=== PATIENT | male | born 1965 | race Caucasian/White ===

== ENCOUNTER 2025-02-26 19:20 | Observation (INO) | payer OTHER, SELFPAY ==
[2025-02-26] VITALS (9 sets, daily range): BP systolic 122–158; BP diastolic 59–102; BMI 26.5; BMI 26.8
[2025-02-26 16:31] LABS: Glucose - Point of Care 116 mg/dl (70-99)
[2025-02-26 16:52] LABS: Hematocrit 43.7 % (39.0-52.0); Hemoglobin 14.9 g/dL (13.0-18.0); Mean Corp Hgb Conc. 34.1 g/dL (33.0-37.0); Mean Corpuscular Volume 91.2 fL (80.0-94.0); Nucleated Red Blood Cells % 0 % (-); Platelet Count 234 10^3/uL (130-400); Red Cell Dist. Width 13.9 % (11.5-14.5)
[2025-02-26 17:04] LABS: APTT 26.3 Sec (23.4-35.0)
[2025-02-26 17:16] LABS: ALT (SGPT) 28 U/L (0-50); AST (SGOT) 43 U/L (17-59); Albumin 4.5 g/dl (3.5-5.0); Alkaline Phosphatase 84 U/L (38-126); Blood Urea Nitrogen 10 mg/dl (9-20); Calcium 9.3 mg/dl (8.4-10.2); Carbon Dioxide 27 mmol/L (22-30); Chloride 102 mmol/L (98-107); Estimated Creatinine Clearance 92 ml/min; Glucose 120 mg/dl (70-99); Potassium 4.5 mmol/L (3.5-5.1); Sodium 135 mmol/L (135-145); Total Protein 7.3 g/dl (6.3-8.2); eGFR > 60.00
--- NOTE | 2025-02-26 17:23 | ED.CVA ---
History of Present Illness
General
Chief Complaint: CVA/TIA Symptoms
Time Seen by Provider: 02/26/25 17:02
Onset of Stroke Symptoms
Onset of symptoms known: No
Time pt last seen normal is known: Yes
Date last time pt seen normal: 02/26/25
History of Present Illness
History of Present Illness:
Patient is a 59-year-old man with history of factor V Leiden presenting to the emergency department with speech difficulty. Patient states that he feels completely fine however he is here as his daughter and convinced him to come. Per
patient's family members they state that patient has been slow with his speech as well as fine motor skills. Patient himself just feels tired. Last known normal was somewhere between 9:11 AM. He denies any numbness tingling or weakness. No chest
pain. No back pain. No headache. He does have strong family history of stroke.
Past History
Past History
ED Past Medical History: None
ED Past Surgical History: None
Social History
Tobacco: Non-smoker
Alcohol: None
Drug: None
Phy Exam
Physical Exam
Physical Exam:
GENERAL: in no acute distress
HEENT: normocephalic, extraocular movements intact, moist oral mucosa
NECK: normal inspection
RESPIRATORY: no respiratory distress, clear to auscultation bilaterally
CARDIOVASCULAR: regular rate and rhythm
ABDOMEN/: soft, non-distended, non-tender to palpation, no rebound or guarding
EXTREMITIES: non-tender, no edema/swelling
NEUROLOGIC: NIH 1 for expressive aphasia, alert and oriented x 3, cranial nerves II-XII intact, right upper extremity strength 5/5, left upper extremity strength 5/5, right lower extremity strength 5/5, left lower extremity strength 5/5, normal
sensation to light touch, normal [id number] and rech-se-sslm, gait not tested formally
SKIN: warm
Course
Orders/Labs/Results
Orders:
Orders
02/26/25 16:39
CT Head W/o Iv Contrast Urgent
Comment:
Reason For Exam: slow speech, dizziness
02/26/25 16:40
Electrocardiogram (*1) Urgent
Reason for Study: Vertigo / Dizzy
EKG- Treatment ONCE
02/26/25 16:43
Complete Blood Count/With Diff Urgent
Comprehensive Metabolic Panel Urgent
PTT Urgent
Abnormal Lab Results
02/26/25 02/26/25
16:29 16:43
MCH 31.1 H pg
(27.0-31.0)
Glucose 120 H mg/dl
(70-99)
POC Glucose 116 H mg/dl
(70-99)
02/26/25 16:43
02/26/25 16:43
Vital Signs
Initial and Last Documented VS:
Initial Vital Signs
Temp Pulse Resp BP Pulse Ox
97.8 F 88 16 158/99 99
02/26/25 16:25 02/26/25 16:25 02/26/25 16:25 02/26/25 16:25 02/26/25 16:25
Last Documented Vital Signs
Temp Pulse Resp BP Pulse Ox
97.8 F 92 14 136/84 98
02/26/25 16:25 02/26/25 17:15 02/26/25 17:15 02/26/25 17:08 02/26/25 17:28
MDM/Problems Addressed
Differential Diagnosis Includes:
Patient is a 59-year-old man presenting to the emergency department with speech changes the last known normal between 9:11 AM. On arrival vitals are notable for hypertension and exam does show some slowness of his speech. NIH of 1. Concern for
CVA especially given his history of factor V Leiden. Will proceed with basic blood work and CT scan of the head. Patient will need admission for further evaluation.
*Pulse Oximetry
SaO2: 98
Oxygen Mode of Delivery: Room air
Patient hypoxic: no
*Critical Care Note
Total Time (30-74mins, 75-104mins- exclusive of procedures): Not Applicable
Update Note
Update Note:
Labs unremarkable. CT scan of the head per my interpretation with no obvious abnormality. Discussed with hospitalist who accepted patient to their service.
ED Attending Note
-
Portions of this chart may have been created with voice recognition software.� Occasional wrong word or��sound alike� substitutions may have occurred due to the inherent limitations of voice recognition software.
Discharge Plan
Departure
Patient Disposition: Admit
Date of Disposition: 02/26/25
Time of Disposition: 17:51
Presentation/result/management discussed w/ accepting MD/DO: Hospitalist
Discharge Problem:
Expressive aphasia
Prescriptions:
No Action
finasteride [Propecia] 1 mg Tablet
1 mg PO DAILY
Interventions
Interventions:
*Risk Screen - Suicide Last Done: 02/26/25 17:09
*General Assessment Last Done: 02/26/25 17:09
*Neglect/Abuse Screening Last Done: 02/26/25 17:09
*ED- Fall Risk Assessment Last Done: 02/26/25 17:09
*ED COVID-19 Vaccine History Last Done: 02/26/25 17:09
*ED Influenza Vaccine History Last Done: 02/26/25 17:09
ED- Pulmonary Assessment Last Done: 02/26/25 17:10
ED- Neurological Assessment Last Done: 02/26/25 17:10
ED- Cardiac Assessment Last Done: 02/26/25 17:10
Discharge Date and Time
Print Language: KISWAHILI
--- NOTE | 2025-02-26 18:01 | HPS.HSE ---
Family Physician
-
Family Physician: * NONE
Chief Complaint
-
expressive aphasia
History of Present Illness
The patient is a 59-year-old male (right handed) with past medical history significant for factor V Leiden, right knee replacement in September, who presents to the emergency department secondary to difficulty with speech, per patient's family. The family
feels like he is not having speech issues, but the patient's disagrees, stating that he has not been himself, with slurred speech and word-finding difficulty. Symptoms started around 9 am. The patient complains of extreme overall body fatigue,
and sleepiness. 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 He's been sleeping normally this past week, denies fever, denies
any rashes nor tick bites. He has a history of Lyme disease typically presenting with joint pain, improved with Doxycycline, and denies joint pain at this time. He has no sick contacts, no fevers, no chills, and has had intentional weight loss since
before his knee surgery. He denies any focal motor weakness, no facial droop, no sensory loss, no headache. He denies shortness of breath, no chest pain, no loss of consciousness. He received aspirin 325 mg in ED, and after discussion with
Neurology, is pending a CTA and CTP of the head and neck.
Medical History
Past Medical History
Past Medical History: Reports Hypercholesterolemia and Other
Additional Past Medical History:
factor V Leiden, low back pain with radiculopathy osteoarthritis knee, Lyme disease (several times)
Past Surgical History: Reports Orthopedic
Additional Past Surgical History:
Right Knee replacement September 2024
Social History
Tobacco: Non-smoker
Alcohol: Occasional
Drug: None
Personal:
Living: With Family (2 daughters )
Family History
Family History: Other (Strokes)
Allergies / Home Medications
Allergies reflects when Allergies were last updated in [email or web address].
Home Medications with original date entered in [email or web address]
Allergy/Medication List:
Allergies
Allergy/AdvReac Type Severity Reaction Status Date / Time
No Known Allergies Allergy Verified 02/26/25 16:30
Home Medications
finasteride 1 mg tablet (Propecia) 1 mg PO DAILY 02/26/25
Review of Systems
-
A 12 point ROS was completed and negative except as noted: Yes
Physical Exam
Vital Signs
Vital Signs
Temp Pulse Resp BP Pulse Ox
97.8 F 92 14 136/84 98
02/26/25 16:25 02/26/25 17:15 02/26/25 17:15 02/26/25 17:08 02/26/25 17:28
Physical Exam
General: Well Developed, Well Nourished, Conversant and Slurred Speech (slight slurring of some words)
HEENT: NormoCephalic, Anicteric and Moist mucous membranes
Respiratory: Clear and Non Labored Respirations
Cardiac: S1/S2 and Regular Rhythm
GI: Soft, Non Tender and Non Distended
Musculoskeletal: No Clubbing, No Cyanosis and No Edema
Skin: Warm and Dry
Neuro: AO x 3, No Motor Deficits, Nonfocal/grossly intact and Other (slight horizontal nystagmus )
Psych: Calm
Laboratory Results
-
02/26/25 16:43
02/26/25 16:43
Laboratory Results
APTT 26.3 Sec (23.4-35.0) 02/26/25 16:43
Total Bilirubin 0.6 mg/dl (0.2-1.3) 02/26/25 16:43
AST 43 U/L (17-59) 02/26/25 16:43
ALT 28 U/L (0-50) 02/26/25 16:43
Alkaline Phosphatase 84 U/L (38-126) 02/26/25 16:43
Data Reviewed
-
CT Scan: Report Reviewed by me (CT of the head with no acute intracranial abnormalities)
Impression/Plan
-
IMPRESSION:
The patient is a 59-year-old male (right handed) with past medical history significant for factor V Leiden, right knee replacement in September, who presents to the emergency department secondary to difficulty with speech, per patient's family. The family
feels like he is not having speech issues, but the patient's disagrees, stating that he has not been himself, with slurred speech and word-finding difficulty. Symptoms started around 9 am. The patient complains of extreme overall body fatigue,
and sleepiness. 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 He's been sleeping normally this past week, denies fever, denies
any rashes nor tick bites. He has a history of Lyme disease typically presenting with joint pain, improved with Doxycycline, and denies joint pain at this time. He has no sick contacts, no fevers, no chills, and has had intentional weight loss since
before his knee surgery. He denies any focal motor weakness, no facial droop, no sensory loss, no headache. He denies shortness of breath, no chest pain, no loss of consciousness. He received aspirin 325 mg in ED, and after discussion with
Neurology, is pending a CTA and CTP of the head and neck.
# Concern is for TIA vs CVA, possible posterior stroke, currently no focal deficits, in setting of Factor V Leiden
-Admit to tele, observation services
-stat CTA head and neck, CTP pending read- will call radiology - ordered in ED & pending at this time
-CT head without acute findings, ordered MRI brain
-Continue aspirin daily
-Neurology consultation appreciated
-neuro checks
-passed bedside swallow, start cholesterol lowering diet
-check urine tox
# Factor V Leiden, not on AC
-Cont aspirin, discuss with Neurology
#Prior Lyme dx
-check Lyme PCR
DVT proph-Lovenox/PCDs
Full Code
[2025-02-26] MEDS: ASPIRIN 325 MG PO (18:36)
--- NOTE | 2025-02-26 19:10 | EDRN ---
Pt says his daughter and yelled at him to come to the hospital 'I fought tooth and nail not to come.' says pt was walking very slowly, leaning to the left, very unsteady. 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 First time this was observed was 1130. 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
says they were at a dog event this morning and she realized there was something wrong with his walking when they left. 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 'He was standing on the side of the field but wasn't really coaching.'
Pt went home after the soccer game and after 20 minutes his daughter brought him to the ED. Pt's only complaint is 'I'm wicked tired.' Pt adds he had L knee pain earlier today. Pt denies cp, sob, abd pain, n/v, dizziness, headache, visual/speech
disturbance, fever/chills/cough, ill contacts, weakness. Pt says he was fine yesterday and usually has a lot of energy.
--- NOTE | 2025-02-26 20:04 | EDRN ---
"Pt told this RN that while he was in CT, someone said something about being a repeat customer today and pt had no memory of being in CT for his first CT today. Additionally, pt said he does not remember his daughter driving him to the hospital. Dr Maliha (~) was informed of this. Verbal report given to ROBSON Banerjee on 4th floor."
[2025-02-26] MEDS: TYLENOL 650 MG PO (21:06)
[2025-02-26 21:41] LABS: TSH 1.44 uIU/ml (0.47-4.68)
[2025-02-26] MEDS: MELATONIN 5 MG PO (22:43)
[2025-02-26] MEDS: NSS 1000 IV (22:43)
[2025-02-27 03:59] VITALS: BP 149/90
[2025-02-27 07:21] LABS: Hematocrit 41.6 % (39.0-52.0); Hemoglobin 14.2 g/dL (13.0-18.0); Mean Corp Hgb Conc. 34.1 g/dL (33.0-37.0); Mean Corpuscular Volume 92.0 fL (80.0-94.0); Nucleated Red Blood Cells % 0 % (-); Platelet Count 209 10^3/uL (130-400); Red Cell Dist. Width 13.9 % (11.5-14.5)
[2025-02-27 07:28] LABS: Blood Urea Nitrogen 7 mg/dl (9-20); Calcium 8.7 mg/dl (8.4-10.2); Carbon Dioxide 23 mmol/L (22-30); Chloride 109 mmol/L (98-107); Estimated Creatinine Clearance 104 ml/min; Glucose 100 mg/dl (70-99); HDL Cholesterol 95 mg/dl; LDL Cholesterol, Calculated 78 mg/dl; Potassium 3.5 mmol/L (3.5-5.1); Sodium 136 mmol/L (135-145); Very Low Density Lipoprotein 35 mg/dl (0-30); eGFR > 60.00
--- NOTE | 2025-02-27 07:32 | CON.NEURO ---
Consultation
Order
Date of Consultation: 02/27/25
Requesting Provider: Shayy Jett DO
Reason for Consult: TIA
Neurology Consultation Note.
HPI: This is a 59-year-old man who presented to [facility] on 02/26/2025 with transient encephalopathy.
The patient reports that yesterday morning his first noticed changes in his gait while they were at a [employer] dog walk. Throughout the day, he experienced episodes of absence while driving, including missing a familiar entrance that he had
navigated many times before. 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 When he returned home, he parked the car in an unusual manner. His daughter became concerned that he was having a stroke and brought him to
the hospital.
At the hospital, the patient remembers parking but recalls little else from the visit. He was unable to retrieve his photo ID from his wallet. His reported that he had a blank stare throughout the day. Around 10 PM, he began feeling fine and
had a good night's sleep.
The patient denies headaches, though he took Tylenol yesterday in ER. There was initially concern about vision changes, but this was attributed to wearing the wrong glasses.
ER VS: 158/89, 73, afebrile
EKG:NSR, QTcB Int : 457 ms.
PDMP:Oxycodone Hcl (Ir) 5 Mg�30 tablets filled in 09/09/2024
Labs: Glucose�120, normal sodium, creatinine, calcium, TSH, LDL�78, triglycerides�175, total cholesterol�208.
CT head wo contrast-unremarkable
CTP head-unremarkable.
CTA/ head/neck�no hemodynamically significant stenosis.
PMH: factor V Leiden, history of Lyme disease, L L5 radiculopathy
PSH:R TKA, appendectomy, multiple shoulder arthroscopies
SH: , has 4 children, Drinks alcohol, mostly beer on weekends with occasional weekday consumption, denies tobacco use;
FH: Father: History of stroke at age 80; Mother: Dementia onset around age 85, currently in half-way
All:NKDA
ROS: General: Negative for appetite changes (patient reports eating normally today after not eating yesterday).
HEENT: Negative for headache, negative for vision changes.
Neurological: Negative for headache.
General: Well developed. In no acute distress.
Cardio: Regular rate and rhythm without murmur. Extremities are without cyanosis or edema.
Neuro:
Mental Status: Alert, oriented to person, place, and date. Normal attention and recall. Good fund of knowledge. Follows complex requests across the midline. Comprehension, naming, and repetition intact. Delayed recall 2 out of 3.
Cranial Nerves: Pupils are equally round and reactive to light. EOMs full. Visual carrero full to confrontation. No ptosis. No nystagmus. V1-V3 intact to light touch and pinprick bilaterally, symmetric. Face symmetric. Normal hearing AU. The
palate elevated well. SCMs and traps 5/5. Tongue midline. No dysarthria.
Motor: Normal bulk and tone. No pronator or arm drift. Strength 5/5 throughout. No clonus.
Reflexes: 2+ throughout the upper extremities and knees. 0/2 in AJs. Plantar responses flexor bilaterally. Negative grasp and Prashanth's bilaterally
Sensory: Absent vibration at the toes and ankles and preserved at the knees
Coordination: No dysmetria or tremor.
Gait: deferred
Assessment and Plan:
I. Mild encephalopathy Differential diagnosis includes vascular versus toxic versus ictal.
II. 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
III. Biderline QTcB
- Fall precautions
- Please obtain brain MRI without nito
- Please obtain urine tox, vitamin B12, TSH, thiamine, SPEP/immunofixation.
- Routine EEG
- Will continue to follow.
I personally reviewed all radiology and labs along with past medical records pertinent to current medical problems. Total time spent in patient care is 60 minutes.
Thank you for allowing us to participate in the care of this patient. lease do not hesitate to contact us with any questions or concerns.
Subjective/Objective
Subjective Data
Date of Service: February 27, 2025
Objective Data
Vital Signs
Temp Pulse Resp BP Pulse Ox
36.8 C 75 16 149/90 96
02/27/25 03:59 02/27/25 03:59 02/27/25 03:59 02/27/25 03:59 02/27/25 05:37
Lab Results
02/27/25 06:08
02/27/25 06:08
APTT 26.3 Sec (23.4-35.0) 02/26/25 16:43
Sodium 136 mmol/L (135-145) 02/27/25 06:08
Potassium 3.5 mmol/L (3.5-5.1) 02/27/25 06:08
BUN 7 mg/dl (9-20) L 02/27/25 06:08
Glucose 100 mg/dl (70-99) H 02/27/25 06:08
Calcium 8.7 mg/dl (8.4-10.2) 02/27/25 06:08
LDL Cholesterol, Calc 78 mg/dl 02/27/25 06:08
Patient Allergies
No Known Allergies Allergy (Verified 02/26/25 16:30)
Medications
-
Active Medications
Generic Name Dose Route Start Last Admin
Trade Name Freq PRN Reason Stop Dose Admin
Acetaminophen 650 mg 02/26/25 21:42
Acetaminophen 650 Mg Rectal Suppository RECTAL 03/26/25 21:41
Q4HPRN PRN
HSU, mild pain, or temp >100.4F
Acetaminophen 650 mg 02/26/25 21:42
Acetaminophen 325 Mg Tablet PO 03/26/25 21:41
Q4HPRN PRN
HSU, mild pain, or temp >100.4F
Aspirin 81 mg 02/27/25 08:00
Aspirin 81 Mg Chewable Tablet PO 03/27/25 07:59
DAILY JEFERSON
Enoxaparin Sodium 40 mg 02/27/25 18:00
Enoxaparin Sodium 40 Mg/0.4 Ml Syringe SC 03/27/25 17:59
QPM JEFERSON
Sodium Chloride 1,000 mls @ 100 mls/hr 02/26/25 21:42 02/26/25 22:43
Nss IV 02/27/25 07:41 1,000 mls
.Q10H JEFERSON Administration
Non-Formulary Medication 1 mg 02/27/25 08:00
Finasteride [Propecia] PO 03/27/25 07:59
DAILY JEFERSON
Home Medications
�Medication �Instructions �Recorded
finasteride 1 mg tablet (Propecia) 1 mg PO DAILY 02/26/25
zolpidem 5 mg tablet (Ambien) 5 mg PO HS PRN sleep 02/26/25
Vital Signs and Labs
-
Vital Signs and Labs:
Vital Signs
Temp Pulse Resp BP Pulse Ox
36.8 C 75 16 149/90 96
02/27/25 03:59 02/27/25 03:59 02/27/25 03:59 02/27/25 03:59 02/27/25 05:37
Lab Results
02/27/25 06:08
02/27/25 06:08
APTT 26.3 Sec (23.4-35.0) 02/26/25 16:43
Sodium 136 mmol/L (135-145) 02/27/25 06:08
Potassium 3.5 mmol/L (3.5-5.1) 02/27/25 06:08
BUN 7 mg/dl (9-20) L 02/27/25 06:08
Glucose 100 mg/dl (70-99) H 02/27/25 06:08
Calcium 8.7 mg/dl (8.4-10.2) 02/27/25 06:08
LDL Cholesterol, Calc 78 mg/dl 02/27/25 06:08
Medications
-
Medications:
Generic Name Dose Route Start Last Admin
Trade Name Freq PRN Reason Stop Dose Admin
Acetaminophen 650 mg 02/26/25 21:42
Acetaminophen 650 Mg Rectal Suppository RECTAL 03/26/25 21:41
Q4HPRN PRN
HSU, mild pain, or temp >100.4F
Acetaminophen 650 mg 02/26/25 21:42
Acetaminophen 325 Mg Tablet PO 03/26/25 21:41
Q4HPRN PRN
HSU, mild pain, or temp >100.4F
Aspirin 81 mg 02/27/25 08:00
Aspirin 81 Mg Chewable Tablet PO 03/27/25 07:59
DAILY JEFERSON
Enoxaparin Sodium 40 mg 02/27/25 18:00
Enoxaparin Sodium 40 Mg/0.4 Ml Syringe SC 03/27/25 17:59
QPM JEFERSNO
Sodium Chloride 1,000 mls @ 100 mls/hr 02/26/25 21:42 02/26/25 22:43
Nss IV 02/27/25 07:41 1,000 mls
.Q10H JEFERSON Administration
Non-Formulary Medication 1 mg 02/27/25 08:00
Finasteride [Propecia] PO 03/27/25 07:59
DAILY JEFERSON
Home Medications
-
Home Medications
finasteride 1 mg tablet (Propecia) 1 mg PO DAILY 02/26/25
zolpidem 5 mg tablet (Ambien) 5 mg PO HS PRN sleep 02/26/25
[2025-02-27 07:50] VITALS: BP 154/88
[2025-02-27] MEDS: LOW STRENGTH ASPIRIN 81 MG PO (08:16)
[2025-02-27 09:06] LABS: Urine Character Clear (Clear)
[2025-02-27 09:21] LABS: Urine Red Blood Cell None Seen /HPF (0-2); Urine Squamous Cell None seen /LPF (Few); Urine White Cell 0-2 /HPF (0-5)
[2025-02-27 09:53] VITALS: BP 166/97
--- NOTE | 2025-02-27 10:12 | PTOTSP ---
Speech Therapy Evaluation:
Pt with acute risk factor of dysphagia including concern for CVA. Presented to with expressive aphasia. Pt reported complete resolution of aphasia. Did not observe aphasia during informal observation. Regarding swallowing, suspect oropharyngeal
swallow WFL. No overt s/sx of aspiration, pt passed 3oz swallow screen, and WBC WNL. NIH 0.
Recommend:
1. Regular solids and thin liquids
2. Medications as tolerated
3. General aspiration precautions
4. No further STAFFING COORDINATOR services indicated for swallowing. STAFFING COORDINATOR to follow, pending MRI to determine if further language assessment warranted
[2025-02-27 10:29] VITALS: BP 166/97; PULSE 86; O2SAT 99
--- NOTE | 2025-02-27 11:35 | CM ---
Met with patient at bedside
Family Physician verified: Dr. Ezekiel Nazario @ [address], [address], [place] [address];
Outpatient Observation Status Notice explained; form signed @ 1140
Pharmacy verified: [facility] @ [id number]
Lives w/ ; multilevel home
Independent w/ ambulation, stairs, and ADLs; works time clerk; drives; no DME
No SNF or Home Health utilization history
will transport home'
Plan: Discharge to home; no needs
[2025-02-27 11:45] VITALS: BP 143/84
--- NOTE | 2025-02-27 12:47 | PTCARENOTE ---
Patient ambulating in room with a steady gait. Patient NIH was a 0. Patient does stutter at times and appears anxious. Patient's spouse at bedside and feels patient is back to his normal.
[2025-02-27 15:26] LABS: Vitamin B12 165 pg/ml (239-931)
[2025-02-27 15:53] VITALS: BP 151/85
--- NOTE | 2025-02-27 16:17 | W.PN.HOSP.TC ---
Addendum entered and electronically signed by Yamileth Ruelas MD 02/27/25 18:04:
I saw and evaluated the patient independently. I reviewed and discussed the resident�s note and agree with findings and plan as documented by Dr. Salgado.
GENERAL: well developed, well nourished, male in no apparent distress
HEENT: NC/AT
HEART: regular rate and rhythm, +S1, +S2
LUNGS : clear to auscultation bilaterally
ABDOM: soft, nontender, nondistended, + bowel sounds
EXT: no cyanosis, clubbing, or edema
NEUROLOGIC: nonfocal
Acute mental status change--likely TIA although migraines, seizures (post ictal) all possible--head CT and CTA without acute issues--MRI/MRA brain without acute issues--apprec neuro--cont asa--B12 low--start supplements--outpt f/u with neuro for EEG
and keep LDL <70
Factor V Leiden- Please follow-up with PCP within 7 days to inquire about possibility of anticoagulation--consider heme eval
DVT proph
code status-- full code
Original Note:
Today's Communication/Plan
-
Patient discharged home
Assessment / Plan
Assessment / Plan
Acute mental status change:
- differential is Transient ischemic attack vs mild encephalopathy vs vascular cause vs ictal seizures vs distal symmetric large fiber sensory polyneuropathy
- Physical examination especially neuro exam is benign for any positive pertinent findings
- CT head without contrast shows no infarction, intracranial hemorrhage, mass effect, midline shift, structural defects, focal abnormalities
- Head/neck CTA shows no internal carotid artery dissection or stenosis
- Brain MRI shows no acute intracranial abnormality, there are scattered T2/FLAIR hyperintensities within the subcortical and periventricular white matter of the bilateral cerebral hemispheres which is nonspecific and are most likely sequel of mild
small vessel ischemic disease
-Head MRA is negative for any stenosis, aneurysm, occlusion
- Neurology was consulted
- Vitamin B12 is low, TSH is normal, SPEP pending, urine tox negative, urinalysis negative
- Labs show triglycerides of 175, total cholesterol 208, LDL of 78, VLDL 35, please repeat lipid panel in 3 months with PCP
- Will discharge patient on aspirin 81 mg daily, vitamin B12 1000 mcg daily, keep LDL less than 70
- Please follow-up with PCP in 1 week and neurology within 5 to 10 days to get EEG and further workup
Factor V Leiden:
- Please follow-up with PCP within 7 days to inquire about possibility of anticoagulation
Anticipated Discharge: Today
Subjective/Interval History
-
Date of Service: February 27, 2025
59-year-old male full code who presented to the [place] [facility] ED on 02/26/2025 with changes in mental status, loss of balance, slurring of words . Patient states that yesterday morning his started to notice changes in in him during a annita dog
walk. Then while he went to his daughter's soccer game, he felt confused and could not navigate directions to a familiar entrance which he had done many times before. Then he states that many people came up to his at the soccer game and asked
if he was okay as he had a blank stare on his face. After this when he returned home he did not parked the car in his usual manner. His daughter became concerned that he might be having a stroke and brought him to the hospital. No headaches,
weakness, numbness, tingling, nausea, vomiting visual changes, facial droop, memory loss, gait instability. No previous history of any hypertension, diabetes mellitus, hyperlipidemia. No previous history of myocardial infarction or stroke. He is
not on any anticoagulants. No new medications. He does have a family history of stroke.
Objective Data
-
Labs:
Laboratory Results
02/27/25
06:08
WBC 5.4
Hgb 14.2
Hct 41.6
Plt Count 209
Sodium 136
Potassium 3.5
Chloride 109 H
Carbon Dioxide 23
BUN 7 L
Creatinine 0.8
Glucose 100 H
Calcium 8.7
Vital Signs:
Vital Signs
Temp Pulse Resp BP Pulse Ox
98.2 F 78 17 151/85 96
02/27/25 15:53 02/27/25 15:53 02/27/25 15:53 02/27/25 15:53 02/27/25 15:53
I&O
02/26/25 02/27/25 02/28/25
06:59 06:59 06:59
Intake Total / 7
Balance /
Review of Systems
-
History Source: Patient
All other systems: Reviewed and negative
Physical Exam
-
General: Well Developed and Well Nourished
Respiratory: Clear to Auscultation
Cardiac: Regular Rhythm and S1/S2
GI: Soft, Nontender, Nondistended and Normal Bowel Sounds
Musculoskeletal: No Clubbing, No Cyanosis and No Edema
Skin: Warm and Dry
Neuro: AO x 3, No Motor Deficits, Central Nerve's Intact, No Sensory Deficits and DTR's Intact & Symmetrica; Negative Tremors, Slurred Speech or Facial Droop
Psych: Calm
Data Reviewed
-
Diagnostic Radiology: Report Reviewed by me and Discussed with Physician
CT Scan: Report Reviewed by me and Discussed with Physician
Ultrasound: Report Reviewed by me and Discussed with Physician
MRI: Report Reviewed by me and Discussed with Physician
Labs: Labs Reviewed by me and Discussed with Physician
--- NOTE | 2025-02-27 18:09 | W.DCSUMMARY ---
Addendum entered and electronically signed by Yamileth Ruelas MD 02/27/25 18:55:
Read, reviewed, and agree. See same day progress note for additional details. Time spent coordinating care, DC planning, review of DC plan of care with resident, transition of care, review of records in EMR, med rec, consults, notes, d/w
consultants, nursing, family, and CM = 25 minutes.
Original Note:
Discharge Summary
Discharge Data
Date of Admission: 02/26/25
Date of Discharge: 02/27/25
-
Pending Results: Yes
Hospital Course
Discharging Physician : Dr. Yamileth Ruelas and Dr.Jitesh Salgado
Disposition : Home
Primary care physician : Ezekiel Nazario
Principal Discharge diagnosis : Acute mental status change, Vitamin B12 Deficiency
Chronic Discharge diagnosis : Factor V Leiden
Hospital Course : This is a 59-year-old man who presented to [facility] on 02/26/2025 with transient encephalopathy.
Problem 1: Acute mental status change
Transient ischemic attack, migraines, seizures postictal are all in differential:
- Patient presented to the ED on 02/26/2025 with confusion, word finding difficulty, loss of balance, slurring of speech. Vitals were stable on arrival, patient afebrile, physical exam specially neuroexam negative for any positive pertinent
findings. Neurology was consulted. CT head without contrast shows no infarction, intracranial hemorrhage, mass effect, midline shift, structural defects, focal abnormalities. Head/neck CTA shows no internal carotid artery dissection or stenosis.
Brain MRI shows no acute intracranial abnormality, there are scattered T2/FLAIR hyperintensities within the subcortical and periventricular white matter of the bilateral cerebral hemispheres which is nonspecific and are most likely sequel of mild
small vessel ischemic disease. Head MRA is negative for any stenosis, aneurysm, occlusion. Labs show triglycerides of 175, total cholesterol 208, LDL of 78, VLDL 35, Patient discharged with aspirin 81 mg to be taken daily and follow-up with PCP in
5 days. Please repeat lipid panel in 3 months. Please follow-up with neurology within 5 to 10 days to get EEG and further workup. On discharge patient is stable, afebrile, no positive pertinent findings on physical examination.
Problem #2: Vitamin B12 deficiency
-Vitamin B12 level is 165. Discharge patient on 1000 mcg vitamin B12 to be taken daily. Please follow-up with PCP in 5 days to further evaluate.
Problem #3: Factor V Leiden deficiency
- Please follow-up with PCP in 5 days for further evaluation and having a conversation about potentially starting anticoagulation and heme evaluation.
Important imaging findings :
Head CT on 02/26/2025:
FINDINGS:
Unenhanced CT imaging of the head reveals no findings to suggest recent infarction, intracranial hemorrhage, extra-axial fluid collection, mass effect or midline shift. The ventricles, cisterns and sulci are within the limits of normal. The
brainstem and posterior fossa structures demonstrate no significant focal abnormality.
IMPRESSION:
No acute intracranial abnormality.
Head/neck CTA on 02/26/2025:
FINDINGS:
CT HEAD: There are no findings to suggest recent intracranial infarction, intracranial hemorrhage, mass effect or midline shift. The ventricles, cisterns and sulci are within the limits of normal. The brainstem and posterior fossa structures
demonstrate no significant focal abnormality.
CTA NECK: The included portions of the thoracic aortic arch are normal in caliber and homogeneous in appearance. The included lung apices appear essentially clear. The thyroid gland is homogeneous. The common carotid arteries are approximately equal
and symmetric bilaterally. The carotid bifurcations and proximal internal carotid arteries are approximately equal and symmetric bilaterally without atherosclerotic narrowing. The internal carotid arteries are approximately equal and symmetric
bilaterally mid and distally through the carotid siphons without narrowing or findings to suggest internal carotid artery dissection bilaterally. The right vertebral artery is dominant, left vertebral artery diminutive. There are no findings to
suggest right vertebral artery dissection. Distal left vertebral artery is particularly diminutive.
CTA HEAD: There is blood flow through the [place] into the proximal anterior, middle and posterior intracranial arterial circulation bilaterally without significant proximal arterial stenosis, vessel cut off or displacement. The basilar
artery is somewhat tortuous without focal intrinsic abnormality.
IMPRESSION:
CT of the Head without acute intracranial abnormality.
CTA of the Neck and Head with widely patent carotid arterial system bilaterally, no findings to suggest internal carotid artery dissection bilaterally.
Dominant right vertebral artery. Diminutive left vertebral artery, especially distally.
CTA of Head with no proximal intracranial arterial stenosis bilaterally.
Brain MRI on 02/27/2025
FINDINGS:
Diffusion imaging shows no hyperacute, acute, or early subacute infarction.
Scattered T2/FLAIR hyperintensities within the subcortical and periventricular white matter of the bilateral cerebral hemispheres which is nonspecific, however likely sequelae of mild small vessel ischemic disease. There is no significant volume
loss.
There is no mass or mass effect, or extra-axial fluid collection.
The ventricles are normal in size.
Flow voids of the larger intracranial vessels are present.
Paranasal sinuses and mastoid air cells are predominantly clear.
Marrow signal pattern is within normal limits.
IMPRESSION:
No acute intracranial abnormality noted.
Head MRA on 02/27/2025:
IMPRESSION:
This examination demonstrates no focal hemodynamically significant stenosis, aneurysm or occlusion.
Hypoplastic V4 segment of the left vertebral artery with a right dominant vertebral artery.
Procedure findings :
Discharge Plan
-
Patient Disposition: Home (Routine Discharge)
Discharge Diagnosis/Procedures: Transient ischemic attack vs seizures vs mild encephalopathy vs distal symmetric large fiber sensory polyneuropathy vs vascular cause
Condition: Fair
Diet: Low Cholesterol
Activity: No restrictions
Driving Restrictions: As prior to admission
Bathing Restrictions: None
Blood Work: Repeat lipid panel in 3 months with pcp
Others Tests: EEG outpatient with neurology, SPEP ordered please follow up results outpatient
Referrals:
Naima Oconnell MD [Active, Neurology] - in one to two weeks
Ezekiel Nazario DO [Family Provider, Family Practice] - in less than 1 week
Additional Discharge Medication Instructions: Take 1 aspirin 81 mg daily once a day
Prescriptions:
New
aspirin 81 mg Tablet,Chewable
81 mg PO DAILY Qty: 30 0RF
cyanocobalamin (vitamin B-12) 1,000 mcg capsule
1,000 mcg PO DAILY Qty: 30 0RF
Continued
finasteride [Propecia] 1 mg Tablet
1 mg PO DAILY
zolpidem [Ambien] 5 mg Tablet
5 mg PO HS PRN (Reason: sleep)
Discharge Orders:
Discharge Patient (As Directed); Ordered 02/27/25
Ordered By: Gavin Salgado
Discharge Date and Time
Print Language: MOHAWK
[2025-02-28 11:36] LABS: Lyme Antibody Screen, EIA Negative (Negative)
[2025-03-02 18:11] LABS: Vitamin B1, Whole Blood 204 nmol/L (70-180)
[2025-03-04 04:27] LABS: Albumin 4.08 g/dL (3.75-5.01); SPEP IFE Reflex IFE Done; Total Protein-Electrophoresis 6.1 g/dL (6.3-8.2)
== END 2025-02-27 18:55 | disposition home or self-care (01) ==
LOC: 4 EAST ACU 19:20
PROVIDERS: ADMITTING PHYSICIAN Internal Medicine; ATTENDING PHYSICIAN Internal Medicine; CONSULT PHYSICIAN Psychiatry & Neurology Neurology; EMERGENCY PHYSICIAN Student in an Organized Health Care Education/Training Program; FAMILY PHYSICIAN Family Medicine
DX: R41.82 Altered mental status, unspecified (principal); E53.8 Deficiency of other specified B group vitamins; D68.51 Activated protein C resistance; Z79.82 Long term (current) use of aspirin; G60.8 Other hereditary and idiopathic neuropathies; Z86.19 Personal history of other infectious and parasitic diseases
CPT/HCPCS: 0042T; 70450; 70496; 70498; 70544; 70551; 80048; 80053; 80061; 80306; 81003; 81015; 82607; 82962; 84155; 84165; 84425; 84443; 85025; 85730; 86618; 87476; 92610; 93005; 97129; 97162; 97166; 99285; G0378; Q9967

== ENCOUNTER → 2025-03-04 11:08 | Outpatient (REF) | payer OTHER, SELFPAY ==
--- NOTE | 2025-03-04 15:36 | EEG.RPT ---
Electroencephalogram Report
Recording
Date of EE03/04/25
Type of EEG: Routine
Length of EEG recordin minutes
Done with Video Recording: Yes
Patient Status: Outpatient
Recording Conditions: Awake and Drowsy
Hyperventilation Performed: Yes
Photic Stimulation Performed: Yes
Report
LESS THAN 1 HOUR EEG REPORT
LESS THAN 1 HOUR EEG INTERPRETATION:
Unremarkable EEG for age
CLINICAL CORRELATION:
A normal EEG does not rule out a diagnosis of epilepsy. If clinical suspicion for seizure persists, a prolonged recording may be warranted.
Clinical correlation is advised.
METHODS:
A 21 channel digitized electroencephalogram (EEG) was performed using the 10/20 international system of electrode placement and one-lead of ECG recorded. Video was recorded. Persyst quantitative EEG analysis was performed.
ELECTROENCEPHALOGRAPHER IMPRESSION(S):
Quality of study
Good
Background
There was an unremarkable anterior-posterior voltage gradient of alpha frequency.
With eye opening the background activity changed to a low voltage mixture of frequencies.
There were no significant asymmetries of background activity noted.
Sleep
Drowsiness present
Stage I present
Stage 2 present
Hyperventilation
Produced symmetric amplitude increase and mild slowing appropriate to age
Photic Stimulation
Produced driving symmetrically in most flash frequencies
ECG
Normal sinus rhythm
== END ==
LOC: EEG 11:08
PROVIDERS: ATTENDING PHYSICIAN Student in an Organized Health Care Education/Training Program; REFERRING PHYSICIAN Psychiatry & Neurology Neurology
DX: G45.9 Transient cerebral ischemic attack, unspecified (principal)
CPT/HCPCS: 95813